=== PATIENT | male | born 1985 | race Two or more races ===

== ENCOUNTER 2021-01-14 14:13 | Emergency (ER) | payer OTHER ==
[~2021-01-14] VITALS: Ht 152.4 cm; Wt 72.6 kg
[2021-01-14] MEDS ORDERED: NABUMETONE750 MG PO (18:40)
[2021-01-14] MEDS ORDERED: MUPIROCIN15 GM TOP (18:40)
[2021-01-14] MEDS ORDERED: BACTRIM DS TAB1 EACH PO (18:40)
== END 2021-01-14 18:50 | disposition home or self-care (01) ==
LOC: ER 14:13
DX: L02.31 Cutaneous abscess of buttock (principal); B95.62 Methicillin resistant Staphylococcus aureus infection as the cause of diseases classified elsewhere

== ENCOUNTER 2023-07-06 16:49 | Outpatient (CLI) | payer OTHER ==
[~2023-07-06 16:49] MED LIST: BACTRIM DS TAB1 EACH PO; MUPIROCIN15 GM TOP; NABUMETONE750 MG PO
== END 2023-07-06 16:57 | disposition home or self-care (01) ==
LOC: LAB 16:49
PROVIDERS: ATTEND Specialist
DX: L02.91 Cutaneous abscess, unspecified (principal)